=== PATIENT | male | born 1940 | race Caucasian/White ===

== ENCOUNTER 2016-05-21 02:02 | Observation (INO) | payer OTHER ==
[~2016-05-21] VITALS: Ht 182.9 cm; Wt 81.1 kg
[~2016-05-21 02:02] MED LIST: ALBUTEROL SULF8.5 GM IH; AMBIEN CR12.5 MG PO; ASPIR-LOW81 M1 PO; Acyclovir PO; Aspirin Chewable PO; BACTROBAN CREAM15 GM TP; CIPRO500 M1; CIPRO500 MG PO; CIPROFLOXACIN250 MG PO; COUMADIN,JANTOVE4 MG PO; CYMBALTA60 MG PO; Cardizem CD,Cartia X PO; Coumadin,Jantoven PO; DICLOFENAC SODI50 MG PO; DIFLUCAN100 MG PO; DURAGESIC25 MCG TD; ERGOCALCIF50000 UNIT PO; FLAGYL500 MG PO; FLONASE16 G1 BOTH NARES; FLUCONAZOLE100 M1; IMODIUM2 MG PO; K-Dur PO; KLOR-CON M2020 MEQ PO; KLOR-CON-EF 2525 MEQ PO; LACTULOSE10 GM/151 PO; LEUCOVORIN CALCI5 MG PO; LIDOCAINE700 MG TD; LOTRISONE15 GM TP; LOVENOX80 MG/0.8 SC; LYRICA100 MG PO; LYRICA200 MG PO; METRO GEL 1%60 GM TP; METRONIDAZOLE500 MG PO; MIRALAX17 GM PO; MOBIC15 MG PO; NAPROSYN500 MG PO; OXYCODONE HCL10 MG PO; OXYCODONE HCL5 M1 PO; OXYCODONE5 MG PO; OXYCONTIN10 MG PO; OXYCONTIN20 MG PO; OxyCONTIN PO; PANTOPRAZOLE SO40 MG PO; PERCOCET 5/31 TABLET PO; PHENERGAN12.5 MG PR; PRAVACHOL40 MG PO; PREDNISONE20 MG PO; PROMETHAZINE HC25 M1 PO; PROTONIX40 MG PO; Percocet 5/325,Endoc PO; PriLOSEC PO; Protonix PO; Questran PO; REGLAN5 MG PO; ROPINIROLE HCL0.5 MG PO; Reglan PO; SENNA8.6 MG PO; SENOKOT,SENN1 TABLE1 PO; SEROQUEL12.5 MG PO; SERTRALINE HCL50 MG PO; SORE THROAT LO1 EAC3 MM; ST. JOSEPH ASPI81 MG PO; TOPAMAX50 MG PO; TRAMADOL HCL50 MG PO; TRIAMCINOLONE A30 GM TP; ULTRAM50 MG PO; Xarelto PO; ZOFRAN4 MG PO; ZOVIRAX200 MG PO; Zyloprim PO; oxyCODONE PO; predniSONE PO; vitamin
[2016-05-21 02:42] LABS: HEMATOCRIT 32.9 % (38.0-50.0); MCHC 32.2 G/DL (30.0-36.0); MCV 99.4 FL (86-99); RBC DIS.WIDTH-CV 16.8 % (11.8-14.6); RBC DIS.WIDTH-SD 59.3 % (39-53); RED BLOOD COUNT 3.31 M/uL (4.00-5.50)
[2016-05-21 02:52] LABS: CHLORIDE 106 mEq/L (99-109); POTASSIUM 4.5 mEq/L (3.7-5.4); SODIUM 140 mEq/L (136-147)
[2016-05-21 02:54] LABS: GLUCOSE 146 mg/dL (70-99)
[2016-05-21 02:56] LABS: ANION GAP 7 MEQ/L (2-14); TOTAL BILIRUBIN 1.8 mg/dL (0.0-1.0)
[2016-05-21 02:58] LABS: ALKALINE PHOSPHATASE 136 IU/L (3-129); GFR ESTIMATE (CALCULATED) > 59 mL/min/
[2016-05-21 02:59] LABS: UREA NITROGEN (BUN) 9 mg/dL (9-23)
[2016-05-21 03:00] LABS: DIRECT BILIRUBIN 0.8 mg/dL (0.0-0.3)
[2016-05-21 03:03] LABS: TROP-I INTERPRETATION NEGATIVE; TROPONIN-I < 0.01 ng/mL (0.0-0.30)
[2016-05-21 03:19] LABS: LIPASE < 1 U/L (1.0-51.0)
[2016-05-21 03:46] LABS: HEMATOLOGY COMMENT 1 REV
[2016-05-21 03:47] LABS: PLATELET COUNT 44 K/uL (156-360)
[2016-05-21 05:20] VITALS: BP 146/72
[2016-05-21] MEDS ORDERED: LOTRIMIN AF24 GM TP (16:45)
[2016-05-21] MEDS ORDERED: DURAGESIC25 MCG TD (16:45)
== END 2016-05-21 05:22 | disposition left against medical advice (07) ==
LOC: EME 02:02 → EDOF 04:45
PROVIDERS: Physician Assistant
DX: K92.2 Gastrointestinal hemorrhage, unspecified (principal); I85.10 Secondary esophageal varices without bleeding; K29.50 Unspecified chronic gastritis without bleeding; I25.10 Atherosclerotic heart disease of native coronary artery without angina pectoris; Z85.72 Personal history of non-Hodgkin lymphomas; I48.91 Unspecified atrial fibrillation; Z87.891 Personal history of nicotine dependence; Z79.891 Long term (current) use of opiate analgesic; Z88.8 Allergy status to other drugs, medicaments and biological substances
CPT/HCPCS: 74177; 80048; 80076; 83690; 84484; 85027; 86850; 86900; 86901; 93005; C9113; G0378; J1630; J2405; J2765; J3010; J7030

== ENCOUNTER 2016-05-21 10:13 | Inpatient (IN) | payer OTHER ==
[~2016-05-21] VITALS: Ht 182.9 cm; Wt 78.1 kg
[2016-05-21 11:39] LABS: CHLORIDE 108 mEq/L (99-109); POTASSIUM 4.8 mEq/L (3.7-5.4); SODIUM 141 mEq/L (136-147)
[2016-05-21 11:40] LABS: INTER. NORMALIZED RATIO 1.7; PROTHROMBIN TIME 17.4 (9.2-11.2)
[2016-05-21 11:41] LABS: GLUCOSE 171 mg/dL (70-99)
[2016-05-21 11:42] LABS: ANION GAP 7 MEQ/L (2-14)
[2016-05-21 11:44] LABS: ALKALINE PHOSPHATASE 124 IU/L (3-129)
[2016-05-21 11:45] LABS: GFR ESTIMATE (CALCULATED) > 59 mL/min/
[2016-05-21 11:46] LABS: UREA NITROGEN (BUN) 13 mg/dL (9-23)
[2016-05-21 11:48] LABS: TOTAL BILIRUBIN 2.4 mg/dL (0.0-1.0)
[2016-05-21 11:51] LABS: EOSINOPHIL (%) 1.2 % (0-5); EOSINOPHIL COUNT 0.1 K/uL (0-0.3); HEMATOCRIT 29.4 % (38.0-50.0); IMMATURE GRANULOCYTE (%) 0.5 % (0.0-0.7); IMMATURE GRANULOCYTE COUNT 0.2 K/uL; LYMPHOCYTE COUNT 0.7 K/uL (1.0-2.8); MCH 32.2 PG (29.0-34.0); MCHC 32.7 G/DL (30.0-36.0); MCV 98.7 FL (86-99); MEAN PLAT.VOLUME 10.6 uM^3 (9.0-12.4); MONOCYTE (%) 13.6 % (3-12); MONOCYTE COUNT 0.6 K/uL (0-0.8); NEUTROPHIL (%) 66.2 % (45-76); NEUTROPHIL COUNT 2.7 K/uL (1.8-6.4); PLATELET COUNT 58 K/uL (156-360); RBC DIS.WIDTH-CV 16.7 % (11.8-14.6); RBC DIS.WIDTH-SD 57.3 % (39-53); RED BLOOD COUNT 2.98 M/uL (4.00-5.50); WHITE BLOOD COUNT 4.1 K/uL (4.1-10.2)
[2016-05-21 16:25] LABS: HEMATOCRIT 26.9 % (38.0-50.0); MCV 98.5 FL (86-99)
[2016-05-21] MEDS ORDERED: DURAGESIC25 MCG TD (16:45)
[2016-05-21] MEDS ORDERED: LOTRIMIN AF24 GM TP (16:45)
[2016-05-21 18:41] LABS: MCH 31.5 PG (29.0-34.0); MCHC 31.9 G/DL (30.0-36.0); PLATELET COUNT 56 K/uL (156-360); RBC DIS.WIDTH-CV 16.9 % (11.8-14.6); RBC DIS.WIDTH-SD 57.7 % (39-53); RED BLOOD COUNT 2.73 M/uL (4.00-5.50); WHITE BLOOD COUNT 4.1 K/uL (4.1-10.2)
[2016-05-21 19:42] VITALS: BP 140/62
[2016-05-21 20:05] VITALS: BP 153/75
[2016-05-21 21:05] VITALS: BP 134/62
[2016-05-21 22:04] VITALS: BP 171/69
[2016-05-21 22:41] VITALS: BP 148/63
[2016-05-21 22:47] LABS: ADD MIUA? YES; BILIRUBIN NEGATIVE; BLOOD SMALL; COLOR YELLOW ((YELLOW)); GLUCOSE (STRIP) 50; KETONES 5; LEUKOCYTES NEGATIVE; NITRITE NEGATIVE; PROTEIN (STRIP) 30; SPECIFIC GRAVITY 1.024 (1.000-1.030); UROBILINOGEN 0.2 MG/DL (0.2-1.0)
[2016-05-21 22:55] LABS: BACTERIA NONE SEEN /HPF; EPITHELIAL CELLS NONE SEEN /HPF; MUCUS TRACE /LPF; RED BLOOD CELLS 0-5 /HPF (0-5); UCUL ADDED? NO; WHITE BLOOD CELLS 0-5 /HPF (0-5)
[2016-05-21 23:22] VITALS: BP 137/58
[2016-05-22] VITALS (13 sets, daily range): BP systolic 132–153; BP diastolic 63–71
[2016-05-22 02:32] LABS: HEMATOCRIT 27.8 % (38.0-50.0); MCV 97.9 FL (86-99)
[2016-05-22 08:33] LABS: HEMATOCRIT 24.3 % (38.0-50.0); MCH 32.5 PG (29.0-34.0); MCHC 33.7 G/DL (30.0-36.0); MCV 96.4 FL (86-99); RBC DIS.WIDTH-CV 17.7 % (11.8-14.6); RBC DIS.WIDTH-SD 61.5 % (39-53); RED BLOOD COUNT 2.52 M/uL (4.00-5.50); WHITE BLOOD COUNT 3.2 K/uL (4.1-10.2)
[2016-05-22 08:41] LABS: MEAN PLAT.VOLUME 11.3 uM^3 (9.0-12.4)
[2016-05-22 08:42] LABS: PLATELET COUNT 73 K/uL (156-360)
[2016-05-22 09:51] LABS: BASE EXCESS 1.7 mEq/L (-3 to +3); BICARBONATE 24.2 mEq/L (22-26); CARBOXY HGB 3.4 % (0-5); METHEMOGLOBIN 1.2 % (0-1.5); PCO2 29 mm Hg (35-45); PO2 69 mm Hg (80-100); pH 7.53 (7.35-7.45)
[2016-05-22 09:52] LABS: COMMENTS - BLOOD GASES NA C+; FI02 0.21 %; SITE RR; TOTAL RESP RATE 14 resp/min
[2016-05-22 10:11] LABS: ANION GAP 8 MEQ/L (2-14); CHLORIDE 111 MEQ/L (99-109); SAMPLE HEMOLYSIS CHECK 0; SAMPLE ICTERIC CHECK 1; SAMPLE LIPEMIA CHECK 0; SODIUM 143 MEQ/L (136-147)
[2016-05-22 10:12] LABS: POTASSIUM 3.7 MEQ/L (3.7-5.4)
[2016-05-22 10:16] LABS: GFR ESTIMATE (CALCULATED) > 59 mL/min/; GLUCOSE 151 mg/dL (70-99); UREA NITROGEN (BUN) 14 mg/dL (9-23)
[2016-05-22 16:19] LABS: HEMATOCRIT 25.2 % (38.0-50.0); MCV 96.2 FL (86-99)
[2016-05-22 18:20] LABS: INTER. NORMALIZED RATIO 1.4; PROTHROMBIN TIME 14.4 (9.2-11.2); PTT 28.5 (25-32)
[2016-05-23 00:50] VITALS: BP 145/65
[2016-05-23 01:34] LABS: HEMATOCRIT 25.6 % (38.0-50.0)
[2016-05-23 05:40] VITALS: BP 143/67
[2016-05-23 07:00] LABS: HEMATOCRIT 26.6 % (38.0-50.0); MCH 32.5 PG (29.0-34.0); MCHC 34.2 G/DL (30.0-36.0); MEAN PLAT.VOLUME 10.5 uM^3 (9.0-12.4); PLATELET COUNT 67 K/uL (156-360); RBC DIS.WIDTH-CV 17.6 % (11.8-14.6); RBC DIS.WIDTH-SD 61.4 % (39-53); WHITE BLOOD COUNT 3.5 K/uL (4.1-10.2)
[2016-05-23 07:05] LABS: EOSINOPHIL COUNT 0.1 K/uL (0-0.3); IMMATURE GRANULOCYTE (%) 0.3 % (0.0-0.7); LYMPHOCYTE COUNT 1.2 K/uL (1.0-2.8); MONOCYTE (%) 13.2 % (3-12); MONOCYTE COUNT 0.5 K/uL (0-0.8); NEUTROPHIL (%) 48.9 % (45-76); NEUTROPHIL COUNT 1.7 K/uL (1.8-6.4)
[2016-05-23 07:39] LABS: ALKALINE PHOSPHATASE 110 IU/L (3-129); ANION GAP 9 MEQ/L (2-14); CHLORIDE 112 MEQ/L (99-109); DIRECT BILIRUBIN 0.8 mg/dL (0.0-0.3); GFR ESTIMATE (CALCULATED) > 59 mL/min/; GLUCOSE 136 mg/dL (70-99); POTASSIUM 3.9 MEQ/L (3.7-5.4); SAMPLE HEMOLYSIS CHECK 0; SAMPLE ICTERIC CHECK 1; SAMPLE LIPEMIA CHECK 0; SODIUM 142 MEQ/L (136-147); TOTAL BILIRUBIN 2.9 MG/DL (0.0-1.0); UREA NITROGEN (BUN) 12 mg/dL (9-23)
[2016-05-23 09:00] VITALS: BP 147/65
[2016-05-23 11:30] VITALS: BP 136/62
[2016-05-23 16:15] LABS: HEMATOCRIT 27.5 % (38.0-50.0); MCV 95.5 FL (86-99)
[2016-05-23 19:50] VITALS: BP 127/61
[2016-05-24 01:01] VITALS: BP 128/58
[2016-05-24 01:13] LABS: HEMATOCRIT 26.4 % (38.0-50.0)
[2016-05-24 05:50] VITALS: BP 141/63
[2016-05-24 06:41] LABS: HEMATOCRIT 26.9 % (38.0-50.0); MCH 32.6 PG (29.0-34.0); MCHC 34.2 G/DL (30.0-36.0); MCV 95.4 FL (86-99); RBC DIS.WIDTH-CV 17.4 % (11.8-14.6); RED BLOOD COUNT 2.82 M/uL (4.00-5.50); WHITE BLOOD COUNT 3.5 K/uL (4.1-10.2)
[2016-05-24 07:09] LABS: ALKALINE PHOSPHATASE 93 IU/L (3-129); ANION GAP 10 MEQ/L (2-14); CHLORIDE 110 MEQ/L (99-109); DIRECT BILIRUBIN 0.8 mg/dL (0.0-0.3); GFR ESTIMATE (CALCULATED) > 59 mL/min/; GLUCOSE 121 mg/dL (70-99); POTASSIUM 3.1 MEQ/L (3.7-5.4); SAMPLE HEMOLYSIS CHECK 0; SAMPLE ICTERIC CHECK 0; SAMPLE LIPEMIA CHECK 0; SODIUM 141 MEQ/L (136-147); TOTAL BILIRUBIN 2.5 MG/DL (0.0-1.0); UREA NITROGEN (BUN) 10 mg/dL (9-23)
[2016-05-24 08:01] LABS: EOSINOPHIL (%) 3.7 % (0-5); EOSINOPHIL COUNT 0.1 K/uL (0-0.3); IMMATURE GRANULOCYTE (%) 0.3 % (0.0-0.7); LYMPHOCYTE COUNT 1.5 K/uL (1.0-2.8); MONOCYTE COUNT 0.3 K/uL (0-0.8); NEUTROPHIL (%) 44.1 % (45-76); NEUTROPHIL COUNT 1.5 K/uL (1.8-6.4)
[2016-05-24 08:16] LABS: MEAN PLAT.VOLUME 11.2 uM^3 (9.0-12.4); PLAT.SUFFICIENCY DECREASED; PLATELET COUNT 62 K/uL (156-360)
[2016-05-24 09:00] VITALS: BP 121/60
[2016-05-24 10:54] LABS: INTER. NORMALIZED RATIO 1.5; PROTHROMBIN TIME 15.8 (9.2-11.2); PTT 28.3 (25-32)
[2016-05-24 12:00] VITALS: BP 135/61
[2016-05-24 16:04] LABS: MCV 95.2 FL (86-99)
[2016-05-24 18:09] VITALS: BP 135/62
[2016-05-24 19:40] VITALS: BP 133/60
[2016-05-25] VITALS (7 sets, daily range): BP systolic 105–134; BP diastolic 48–62
[2016-05-25 00:21] LABS: HEMATOCRIT 25.4 % (38.0-50.0); MCV 96.2 FL (86-99)
[2016-05-25 09:27] LABS: INTER. NORMALIZED RATIO 1.5; PROTHROMBIN TIME 15.7 (9.2-11.2)
[2016-05-25 09:33] LABS: HEMATOCRIT 25.3 % (38.0-50.0); MCH 32.1 PG (29.0-34.0); MCHC 33.6 G/DL (30.0-36.0); MCV 95.5 FL (86-99); MEAN PLAT.VOLUME 11.3 uM^3 (9.0-12.4); PLATELET COUNT 54 K/uL (156-360); RBC DIS.WIDTH-CV 17.2 % (11.8-14.6); RBC DIS.WIDTH-SD 59.4 % (39-53); RED BLOOD COUNT 2.65 M/uL (4.00-5.50)
[2016-05-25 09:44] LABS: ALKALINE PHOSPHATASE 83 IU/L (3-129); ANION GAP 10 MEQ/L (2-14); CHLORIDE 111 MEQ/L (99-109); GFR ESTIMATE (CALCULATED) > 59 mL/min/; GLUCOSE 106 mg/dL (70-99); POTASSIUM 3.3 MEQ/L (3.7-5.4); SAMPLE HEMOLYSIS CHECK 0; SAMPLE ICTERIC CHECK 0; SAMPLE LIPEMIA CHECK 0; SODIUM 140 MEQ/L (136-147); UREA NITROGEN (BUN) 10 mg/dL (9-23); WHITE BLOOD COUNT 2.2 K/uL (4.1-10.2)
[2016-05-25 10:36] LABS: EOSINOPHIL (%) 2.8 % (0-5); EOSINOPHIL COUNT 0.1 K/uL (0-0.3); HEMATOLOGY COMMENT 1 SMEAR COMPATIBLE; LYMPHOCYTE COUNT 1.1 K/uL (1.0-2.8); MONOCYTE (%) 9.7 % (3-12); MONOCYTE COUNT 0.2 K/uL (0-0.8); NEUTROPHIL (%) 34.7 % (45-76); NEUTROPHIL COUNT 0.8 K/uL (1.8-6.4); PLAT.SUFFICIENCY DECREASED; USER ID STC
[2016-05-25 16:06] LABS: HEMATOCRIT 24.5 % (38.0-50.0); MCV 95.3 FL (86-99)
[2016-05-26 01:53] LABS: HEMATOCRIT 25.2 % (38.0-50.0); MCV 96.6 FL (86-99)
[2016-05-26 03:57] VITALS: BP 128/63
[2016-05-26 06:15] LABS: MCH 32.1 PG (29.0-34.0); MCHC 33.8 G/DL (30.0-36.0); MCV 95.2 FL (86-99); RBC DIS.WIDTH-CV 17.2 % (11.8-14.6); RBC DIS.WIDTH-SD 58.7 % (39-53); RED BLOOD COUNT 2.52 M/uL (4.00-5.50)
[2016-05-26 06:40] LABS: ALKALINE PHOSPHATASE 95 IU/L (3-129); ANION GAP 7 MEQ/L (2-14); CHLORIDE 111 MEQ/L (99-109); DIRECT BILIRUBIN 0.6 mg/dL (0.0-0.3); GFR ESTIMATE (CALCULATED) > 59 mL/min/; GLUCOSE 110 mg/dL (70-99); POTASSIUM 3.2 MEQ/L (3.7-5.4); SAMPLE HEMOLYSIS CHECK 0; SAMPLE ICTERIC CHECK 0; SAMPLE LIPEMIA CHECK 0; SODIUM 140 MEQ/L (136-147); TOTAL BILIRUBIN 1.8 MG/DL (0.0-1.0); UREA NITROGEN (BUN) 8 mg/dL (9-23)
[2016-05-26 07:35] LABS: EOSINOPHIL (%) 3.5 % (0-5); EOSINOPHIL COUNT 0.1 K/uL (0-0.3); HEMATOLOGY COMMENT 1 SMEAR COMPATIBLE; IMMATURE GRANULOCYTE (%) 0.5 % (0.0-0.7); MONOCYTE (%) 14.4 % (3-12); MONOCYTE COUNT 0.3 K/uL (0-0.8); NEUTROPHIL (%) 31.8 % (45-76); NEUTROPHIL COUNT 0.6 K/uL (1.8-6.4); PLAT.SUFFICIENCY DECREASED; PLATELET COUNT 47 K/uL (156-360); USER ID TLW
[2016-05-26 08:59] VITALS: BP 106/54
[2016-05-26 12:00] VITALS: BP 134/63
[2016-05-26] MEDS ORDERED: XIFAXAN550 MG PO (15:57)
[2016-05-26] MEDS ORDERED: LIDOCAINE700 MG TD (15:58)
[2016-05-26] MEDS ORDERED: LACTULOSE10 GM/151 PO (15:59)
[2016-05-26] MEDS ORDERED: OXYCODONE HCL5 MG PO (16:00)
== END 2016-05-26 17:14 | disposition home health service (06) | DRG 442 ==
LOC: EME 10:13 → EDOF 14:06 → 4EAST 14:06
PROVIDERS: Emergency Medicine; Hospitalist; Internal Medicine
PROC: 30233R1 Transfusion of Nonautologous Platelets into Peripheral Vein, Percutaneous Approach (ICD-10-PCS; principal; 2016-05-21)
PROC: 30233K1 Transfusion of Nonautologous Frozen Plasma into Peripheral Vein, Percutaneous Approach (ICD-10-PCS; 2016-05-22)
DX: K72.90 Hepatic failure, unspecified without coma (principal); K92.0 Hematemesis; D68.4 Acquired coagulation factor deficiency; E72.20 Disorder of urea cycle metabolism, unspecified; K70.31 Alcoholic cirrhosis of liver with ascites; K76.6 Portal hypertension; D69.6 Thrombocytopenia, unspecified; I25.10 Atherosclerotic heart disease of native coronary artery without angina pectoris; G62.9 Polyneuropathy, unspecified; G89.4 Chronic pain syndrome; Z85.72 Personal history of non-Hodgkin lymphomas; Z98.61 Coronary angioplasty status; Z87.891 Personal history of nicotine dependence; Z86.711 Personal history of pulmonary embolism; Z86.718 Personal history of other venous thrombosis and embolism; Z88.2 Allergy status to sulfonamides
CPT/HCPCS: 36600; 80048; 80053; 80076; 81003; 82140; 82803; 85014; 85018; 85025; 85027; 85049; 85610; 85730; 86850; 86900; 86901; 99281; 99285; C9113; J0696; J1160; J2270; J2354; J2405; J7030; J7050; P9017; P9035

== ENCOUNTER → 2017-05-13 | Outpatient (CLI) | payer OTHER ==
[~2017-05-13] VITALS: Ht 182.9 cm; Wt 68.2 kg
[~2017-05-13] MED LIST changes: +ALDACTONE50 MG PO; +CONSTULOSE10 GM/15 M PO; +FLOVENT DISKUS1 DIS2 IH; +LASIX20 MG PO; +LOTRIMIN AF24 GM TP; +METRONIDAZOLE60 GM TP; +OXYCODONE HCL5 MG PO; +ROXICODONE5 MG PO; +XIFAXAN550 MG PO
[2017-05-13 10:23] LABS: HEMATOCRIT 29.8 % (38.0-50.0); HEMOGLOBIN 9.9 G/DL (12.5-16.6); MCH 31.7 PG (29.0-34.0); MCHC 33.2 G/DL (30.0-36.0); MCV 95.5 FL (86-99); RBC DIS.WIDTH-CV 15.1 % (11.8-14.6); RBC DIS.WIDTH-SD 52.5 % (39-53); RED BLOOD COUNT 3.12 M/uL (4.00-5.50); WHITE BLOOD COUNT 2.4 K/uL (4.1-10.2)
[2017-05-13 11:13] LABS: IMM.PLATELET FRACTION 2.7 (1-7); PLAT.SUFFICIENCY DECREASED; PLATELET COUNT 38 K/uL (156-360)
== END | disposition home or self-care (01) ==
LOC: AMB 09:44
PROVIDERS: Anesthesiology
PROC: 0DJ08ZZ Inspection of Upper Intestinal Tract, Via Natural or Artificial Opening Endoscopic (ICD-10-PCS; principal; 2017-05-13)
DX: I85.00 Esophageal varices without bleeding (principal); K76.6 Portal hypertension; K31.89 Other diseases of stomach and duodenum; K74.60 Unspecified cirrhosis of liver; D69.6 Thrombocytopenia, unspecified; Z87.19 Personal history of other diseases of the digestive system; I48.91 Unspecified atrial fibrillation; E78.5 Hyperlipidemia, unspecified; C85.90 Non-Hodgkin lymphoma, unspecified, unspecified site; Z88.2 Allergy status to sulfonamides; Z88.6 Allergy status to analgesic agent; Z88.8 Allergy status to other drugs, medicaments and biological substances
CPT/HCPCS: 85027; 93005; J2250; J3010